=== PATIENT | female | born 1960 | race Caucasian/White ===

== ENCOUNTER 2018-06-02 05:52 | Day surgery (SDC) | payer BC ==
[2018-05-25 11:16] LABS: Protime INR 0.98
[2018-05-25 11:21] LABS: Potassium 3.9 mmol/L (3.5-5.1)
[2018-05-25 11:23] LABS: Absolute Lymphocytes (CBC) 2.4 K/uL (0.7-4.9); Absolute Monocytes 0.4 K/uL (0.1-1.3); Absolute Neutrophil 4.1 K/uL (1.8-8.0); Eosinophils % 2.5 % (0-4.4); Hematocrit 43.3 % (36.0-45.0); Lymphocytes % 33.5 % (15.3-44.8); MPV 9.8 fL (7.6-11.3); Monocytes % 6.1 % (3.3-12.3); RBC Red Blood Cell Count 4.67 M/uL (3.86-4.86)
--- NOTE | 2018-05-25 11:29 | RAD REPORT ---
EXAM DESCRIPTION: Laya Arceo (2 Views)05/25/2018 10:53 am CLINICAL HISTORY: Preop COMPARISON: 2017 FINDINGS: The lungs appear clear of acute infiltrate. The heart is normal size IMPRESSION: No acute abnormalities displayed
--- NOTE | 2018-05-26 07:02 | EKG ---
Test Date: 2018-05-25 Test Time: 10:46:11 Hair Cutter: GAURI MEASUREMENT RESULTS: Intervals: Rate: 63 CT: 150 QRSD: 80 QT: 428 QTc: 437 Gary: P: 9 CT: 150 QRS: 78 T: 54 INTERPRETIVE STATEMENTS: Normal sinus rhythm Normal ECG Compared to ECG 10/17/2017 08:16:30 No significant changes Electronically Signed On 05-26-18 06:53:00 PHILOSOPHY PROFESSOR by Tito Mcclellan
--- OUTSIDE RECORDS SUMMARY | 2018-06-02 05:54 | XMS REPORT ---
:1960 [facility] Address [address] [place] [address] Dr. Johnson. [address] [place] [id number] Care Team Providers Name Role Phone DR ARSENIO SALTER Unavailable Unavailable Problems This patient has no known problems. Allergies, Adverse Reactions, Alerts This patient has no known allergies or adverse reactions. Medications This patient has no known medications. Encounters Start End Encounter Admission Attending Care Care Encounter Date/Time Date/Time Type Type Clinicians Facility Department ID 2017-11-04 2017-11-04 Outpatient Kenneth SALTER [facility] [id number] 05:27:00 08:15:00 ARSENIO 2017-02-11 2017-02-11 Outpatient Kenneth SALTER [facility] [id number] 04:50:00 07:15:00 ARSENIO
[2018-06-02] MEDS ORDERED: CEFAZOLIN 1GM (PREMIX IV) 1 GM/50 ML BAG ONE (06:14)
[2018-06-02] MEDS ORDERED: Ringers Lactate 1,000 ML IV ONE ×2 (06:14→07:21)
[2018-06-02] MEDS ORDERED: LIDOCAINE 1% MPF 5 ML VIAL ONE (06:20)
[2018-06-02] MEDS ORDERED: MIDAZOLAM HCL 2 MG/2 ML INJ ONE ×2 (06:49)
[2018-06-02] MEDS ORDERED: FENTANYL CITR 100 MCG/2 ML ONE (06:49)
[2018-06-02] MEDS ORDERED: DEXAMETHASONE 10 MG/ML VIAL ONE ×2 (06:50→08:16)
[2018-06-02] MEDS ORDERED: ROPLVACAINE HCL 20 ML ONE (06:50)
[2018-06-02] MEDS ORDERED: NA CHLORIDE 0.9% 100 ML IV ONE (06:57)
[2018-06-02] MEDS ORDERED: LIDOCAINE 2% MPF 5 ML VIAL ONE ×2 (06:57→07:28)
[2018-06-02] MEDS ORDERED: EPINEPHRINE/PF 1 MG/ML AMP ONE (07:08)
[2018-06-02] MEDS ORDERED: PROPOFOL 200 MG/20 ML VIAL IV ONE (07:28)
[2018-06-02] MEDS ORDERED: ROCURONIUM 50 MG/5 ML VIAL IV ONE (07:29)
[2018-06-02] MEDS ORDERED: EPHEDRINE SULF 50 MG/ML VIAL ONE (07:45)
[2018-06-02] MEDS ORDERED: Phenylephrine HCl 10 MG/ML 1 ML VIAL ONE (07:57)
[2018-06-02] MEDS ORDERED: ONDANSETRON 4 MG/2 ML VIAL ONE (08:16)
--- NOTE | 2018-06-02 09:35 | P.BOP ---
Preoperative diagnosis: right shoulder rotator cuff tear Postoperative diagnosis: same, retained hardware right shoulder Primary procedure: right shoulder arthroscopic rotator cuff repair Secondary procedure: right shoulder arthrscopic removal of hardware New Patient Escort: NONE,NONE Estimated blood loss: 10 cc Specimen: none Findings: see dictation Anesthesia: General Complications: None Implants: 1- 5.5 mm arthrex corkscrew, 2- 4.75 mm arthrex swivelock Fluids & blood products: per anesthesia record Transferred to: Recovery Room Condition: Good
[2018-06-02] MEDS ORDERED: DIPHENHYDRAMINE 50 MG/ML VIAL ONE ×2 (09:37→12:23)
[2018-06-02] MEDS ORDERED: GLYCOPYRROLATE 0.2 MG/ML SYR ONE (09:39)
[2018-06-02] MEDS ORDERED: NEOSTIGMINE 1 MG/ML -5 ML SYRINGE ONE (09:54)
[2018-06-02] MEDS: DIPHENHYDRAMINE 50 MG/ML VIAL ONE ×2 (10:24→10:40)
--- NOTE | 2018-06-02 11:05 | RAD REPORT ---
EXAM DESCRIPTION: RAD - Shoulder 1 View - 06/02/2018 10:59 am CLINICAL HISTORY: Right shoulder surgery FINDINGS: Frontal view of the right shoulder was obtained. No fracture or dislocation is seen. Small lucency with a sclerotic border within the proximal right h umerus likely is benign
[2018-06-02] MEDS ORDERED: NS 0.9% VIAL 20 ML ONE (11:55)
[2018-06-02] MEDS ORDERED: HYDROCODONE/APAP 10/325 TAB ONE (12:43)
[2018-06-02 12:47] VITALS: BP 120/59; TEMP 97.9; O2SAT 95
--- NOTE | 2018-06-03 00:10 | OP ---
Date of Procedure: 06/02/2018 Surgeon: Mehrdad Willingham MD Preoperative Diagnoses: 1.Right shoulder rotator cuff tear. 2.Right shoulder retained hardware. Postoperative Diagnoses: 1.Right shoulder rotator cuff tear. 2.Right shoulder retained hardware. Procedure Performed: 1.Right shoulder arthroscopic revision rotator cuff repair. 2.Removal of hardware, right shoulder. Anesthesia: General endotracheal. Fluids: Per Anesthesia record. Estimated Blood Loss: 10 cc. Implants: 1.One 5.5 mm Arthrex Corkscrew. 2.Two 4.75 mm Arthrex SwiveLock. Complications: None. Indication For Procedure: Zelda is a 57-year-old female who presented to my clinic with right should er pain. Physical exam findings as well as MRI findings were consistent with retear of her right radha ulder rotator cuff. She had undergone a primary rotator cuff [place] in [address] oDrman. I di scussed with the patient at length risks and benefits associated with operative and nonoperative lacie tment. She expressed understanding and elected to proceed with operative treatment. Description Of Procedure: After informed consent was obtained, the patient was identified in the pre operative holding area. The right upper extremity was marked. The patient was taken to the PACU and underwent an interscalene block to the right upper extremity performed by Anesthesia. She was then transferred to the operating table in a supine fashion and placed under general endotracheal anesthes ia. She was then placed in the beach chair position with her extremities well padded. The right upp er extremity was examined. The patient had full range of motion of the right shoulder joint with no instability noted. The right upper extremity was then prepped and draped in usual sterile fashion. A time-out was initiated. Correct patient and procedure were confirmed and identified. The patient did receive her preoperative prophylactic antibiotics. Via the posterior portal position, a spinal n eedle was introduced in the glenohumeral joint and then shoulder was injected with 30 cc of normal sa line. A posterior portal was created and arthroscope was brought into the glenohumeral joint for the posterior portal position and standard anterior portal was made and a cannula was placed. Diagnosti c arthroscopy was performed. The patient was noted to have a prior biceps tenodesis with labrum inta ct with no biceps anchor in place. The labrum was overall safe to probe. There was some fraying of superior labrum which was debrided. There was a small superior edge tear at subscapularis which was debrided using arthroscopic shaver. The anterior and posterior labrum were found to be intact. The inferior labrum was also found to be intact. There were no loose bodies into the gutter. There was noted to be a full-thickness tear of the supraspinatus. A lateral portal was created and there was t ransfer of an obturator into the joint in the lateral portal position confirming the full thickness i nfraspinatus tear. The arthroscope was then brought into subacromial space and subacromial bursectom y was performed. The tear of the supraspinatus was identified. There was some delamination of the t endon. There was also noted to be in place FiberWire sutures within the shoulder joint as well as wi thin the bursal side. Using an arthroscopic shaver as well as the grasper, sutures were carefully re moved from the tissue and the suture material was removed in full without complication. The rotator cuff was debrided and footprint was debrided using arthroscopic shaver to a bleeding bony bed. The r epair was then performed. The tear was then reduced using arthroscopic grasper from the lateral port al position. A single medial row anchor, double loaded medial row anchor was placed lateral to the a rticular surface. It was passed through the tear in an anterior to posterior fashion and tied down i n a horizontal mattress type fashion. There was good overall reduction of the tear on to the footpri nt. Two lateral row anchors were placed of the lateral aspect of the greater tuberosity using the duggan tures in a crisscross fashion. There was again good reduction of the supraspinatus onto the footprin t. Remaining sutures were cut and the incisions were then irrigated thoroughly with normal saline. Arthroscopic instruments were removed. Portals were approximated using a 3-0 Vicryl. Sterile dressi ngs were applied. The patient was placed in a shoulder immobilizer, awakened, and transferred to PAC U in stable condition. Postoperative Plan: She will be nonweightbearing of her right upper extremity. Will follow medium r otator cuff repair protocol beginning at 6 weeks postoperatively given this is a revision. NADER/HUSAM Voice ID: [id number] Report ID: [id number]
== END 2018-06-02 13:22 | disposition home or self-care (01) ==
LOC: OR 05:52
PROVIDERS: ATTEND Orthopaedic Surgery Sports Medicine
PROC: 0LM14ZZ Reattachment of Right Shoulder Tendon, Percutaneous Endoscopic Approach (ICD-10-PCS; principal; 2018-06-02 07:30)
DX: M75.121 Complete rotator cuff tear or rupture of right shoulder, not specified as traumatic (principal)
CPT/HCPCS: 36415; 71046; 73020; 80048; 85025; 85610; 85730; 93005; J0171; J0690; J1100; J2250; J2370; J2405; J2704; J2710; J2795; J3010